=== PATIENT | male | born 1965 | race Caucasian/White ===

== ENCOUNTER 2020-02-15 05:14 | Outpatient (CLI) | payer BC, OTHER ==
[2020-02-15 09:55] LABS: #Eosinphils 0.4 thou/uL (0.0-0.7); #Lymphocytes 1.4 thou/uL (1.20-3.40); #Monocytes 1.3 thou/uL (0.11-0.59); #Neutrophils 12.8 thou/uL (1.40-6.50); %Basophils 0.1 % (0.0-1.0); %Eosinophils 2.3 % (0.0-10.0); %Lymphocytes 8.7 % (21.0-51.0); %Monocytes 8.4 % (0.0-10.0); %Neutrophils 80.5 % (42.0-75.0); Mean Corpuscular HGB CONC 32.7 g/dL (32.0-36.0); Mean Corpuscular Hemoglobin 28.8 pg (27.0-31.0); Mean Corpuscular Volume 88.2 fL (78.0-98.0); Mean Platelet Volume 6.7 fL (7.4-10.4); Platelet Count 508 thou/uL (130-400); Red Blood Cell (RBC) Count 4.15 mill/uL (4.70-6.10)
[2020-02-15 11:03] LABS: Anion Gap 19 mmol/L (10-20); BUN (Urea Nitrogen) 13 mg/dL (8.4-25.7); Calc. Creatinine Clearance 0 mL/min (70-130); Calcium 8.6 mg/dL (7.8-10.44); Carbon Dioxide 19 mmol/L (22-29); Chloride 106 mmol/L (98-107); Estimated GFR-MDRD Greater than 90; Glucose 89 mg/dL (70-105); Potassium 4.7 mmol/L (3.5-5.1); Sodium 139 mmol/L (136-145)
[2020-02-15 17:20] LABS: SARS-CoV-2 MS2 Positive; SARS-CoV-2 N Gene Negative; SARS-CoV-2 S Gene Negative; SARS-CoV-2 by NAA Not Detected (NotDetected); SARS-CoV-2 orf1ab Negative
== END 2020-02-15 05:15 | disposition home or self-care (01) ==
LOC: LABBT 05:14
PROVIDERS: ATTEND Specialist
DX: Z01.812 Encounter for preprocedural laboratory examination (principal); Z11.59 Encounter for screening for other viral diseases; R59.1 Generalized enlarged lymph nodes
CPT/HCPCS: 80048; 85025; 87635; U0003

== ENCOUNTER 2020-02-18 09:44 | Day surgery (SDC) | payer BC ==
[2020-02-13 10:45] VITALS: BMI 34.8
[~2020-02-18 09:44] MED LIST: Dexamethasone 20 MG/5 ML VIAL ONE; Lidocaine 1% PF 5 ML VIAL ONE; Ondansetron PF 4 MG/2 ML Vial ONE; PROPOFOL 200 MG/20 ML VIAL ONE
[2020-02-18] MEDS ORDERED: Lidocaine 1% w/Epinephrine 1:100K 20 ML VIAL ONE (10:23)
[2020-02-18] MEDS ORDERED: Bupivacaine PF 0.5% 30 ML VIAL ONE (10:23)
[2020-02-18] MEDS ORDERED: Fentanyl 100 MCG/2 ML VIAL ONE ×2 (11:28→11:36)
[2020-02-18] MEDS ORDERED: Midazolam HCl 2 mg/2 ml Vial ONE (11:28)
--- NOTE | 2020-02-18 18:56 | OP ---
DATE OF PROCEDURE: 02/18/2020 PREOPERATIVE DIAGNOSIS: Diffuse lymphadenopathy. POSTOPERATIVE DIAGNOSIS: Diffuse lymphadenopathy. PROCEDURE PERFORMED: Open lymph node biopsy, right groin. ANESTHESIA: General. ESTIMATED BLOOD LOSS: Minimal. COMPLICATIONS: None. SPECIMENS: Lymph node partial, sent to Path, lymph node protocol. DESCRIPTION OF PROCEDURE: The patient was taken to the operating room and laid supine on the operating room table. After general anesthetic was obtained, the right groin was shaved, prepped, and draped in a sterile fashion. An oblique incision was made above the palpable lymphadenopathy. Cautery was used to dissect down to the lymph node. The lymph node was quite large down near the blood vessels. The top of it was removed. The lymph node was sent to Path for final diagnosis. Meticulous hemostasis was obtained. Geoff and a bleeding starch were left on top of the exposed lymph node after the biopsy. The wound was closed using 3-0 Vicryl, 4-0 Monocryl, and Dermabond. The patient was sent to Recovery in stable condition. All instrument counts, needle counts, and lap counts were correct. Job ID: [id number]
== END 2020-02-18 13:46 | disposition home or self-care (01) ==
LOC: SDC 09:44
PROVIDERS: ATTEND Surgery
PROC: 07BH0ZX Excision of Right Inguinal Lymphatic, Open Approach, Diagnostic (ICD-10-PCS; principal; 2020-02-18)
DX: C83.35 Diffuse large B-cell lymphoma, lymph nodes of inguinal region and lower limb (principal); E11.9 Type 2 diabetes mellitus without complications; I10 Essential (primary) hypertension; E78.5 Hyperlipidemia, unspecified; G47.33 Obstructive sleep apnea (adult) (pediatric); N52.9 Male erectile dysfunction, unspecified; K21.9 Gastro-esophageal reflux disease without esophagitis; Z87.891 Personal history of nicotine dependence; Z88.5 Allergy status to narcotic agent; Z88.8 Allergy status to other drugs, medicaments and biological substances
CPT/HCPCS: 88184; 88307; J0690; J1100; J2250; J2405; J2704; J3010; S0020

== ENCOUNTER 2020-04-29 08:12 | Outpatient (CLI) | payer BC ==
--- NOTE | 2020-04-29 13:36 | PET ---
PET CT: HISTORY: 54-year-old male with diffuse large B-cell lymphoma, germinal center type, diagnosed on right groin l ymph node biopsy on 02/18/2020. Patient is undergoing chemotherapy. Exam requested to evaluate respon se and for subsequent treatment planning. TECHNIQUE: PET scanning with CT attenuation correction was performed from the base of the brain through the prox imal thighs following the intravenous administration of 12 mCi [id number] in the right hand. COMPARISON: 02/22/2020. FINDINGS: There is residual hypermetabolic activity in the right inguinal lymph node with a SUV of 3.8. Extensi ve katharina hypermetabolism noted on the previous exam in the neck, chest, axilla, abdomen, pelvis, and left inguinal regions have resolved in the interim and still have the multiple hypermetabolic pulmona ry nodules. No hypermetabolic pulmonary nodules, liver, or adrenal lesions are seen Increased uptake in the axill a and proximal peripheral skeleton is consistent with bone marrow stimulation. There is physiologic activity in the GI and tracts, and visualized portions of the brain. The CT scan used for attenuation correction demonstrates no evidence of pleural effusions or ascites. Cholelithiasis is again noted. IMPRESSION: Significant interval improvement since 02/22/2020 with an incomplete response to therapy (Deauville-3 ). POS: ISAURA
== END 2020-04-29 08:13 | disposition home or self-care (01) ==
LOC: PET 08:12
PROVIDERS: ATTEND Internal Medicine Hematology & Oncology
DX: C83.30 Diffuse large B-cell lymphoma, unspecified site (principal)
CPT/HCPCS: 78815; A9552

== ENCOUNTER 2020-07-01 09:23 | Outpatient (CLI) | payer BC ==
--- NOTE | 2020-07-01 11:33 | PET ---
EXAM: PET/CT HISTORY: History of diffuse large B-cell lymphoma TECHNIQUE: PET scanning with CT attenuation correction was performed from the base of the brain to the proximal thighs following the intravenous administration of 12.9 millicuries [id number]. COMPARISON: Prior PET/CT dated April 29, 2020 FINDINGS: Biodistribution:The biodistribution for the exam appears acceptable. Head and neck: There is appropriate background activity within the brain. No hypermetabolic lymphaden opathy or masses identified. The postsurgical change involving the left frontal skull with opacification of the frontal sinus is s table. Thorax: No hypermetabolic pulmonary lesion, pleural effusion or lymphadenopathy is present. Abdomen and pelvis: There is expected background activity within the GI and systems. No hypermetab olic mass, lymphadenopathy or ascites is present. The hypermetabolic lymphadenopathy of the right inguinal region demonstrates response to therapy. The largest lymph node within the right inguinal re gion measuring 1.8 cm now measures 1.4 cm with a peak activity of 1.94 where the previous peak activity was 3.84. There is cholelithiasis. Osseous structures and skin: There is hypermetabolic activity involving the marrow space of the visua lized axial and appendicular skeleton likely related to marrow stimulation. No suspicious osseous or skin lesion is identified. IMPRESSION: Findings consistent with complete response to therapy. The hypermetabolic lymphadenopathy of the righ t inguinal region has decreased in size and metabolic uptake. Peak activity within the most conspicuous right inguinal lymph node now is 1.94, below the level of the blood pool activity, and is consistent with Deauville score 2. There is some residual hypermetabolic activity seen within the marrow space of the visualized axial and appendicular skeleton likely related to background marrow st imulation. Continued clinical and PET CT follow-up is recommended.
== END 2020-07-01 09:24 | disposition home or self-care (01) ==
LOC: PET 09:23
PROVIDERS: ATTEND Internal Medicine Hematology & Oncology
DX: C83.30 Diffuse large B-cell lymphoma, unspecified site (principal)
CPT/HCPCS: 78815; A9552

== ENCOUNTER 2021-04-03 08:52 | Outpatient (CLI) | payer BC | END 2021-04-03 08:53 | disposition home or self-care (01) | LOC: BICCT 08:52 | PROVIDERS: ATTEND Internal Medicine Hematology & Oncology | DX: C83.83 Other non-follicular lymphoma, intra-abdominal lymph nodes (principal); C85.11 Unspecified B-cell lymphoma, lymph nodes of head, face, and neck; K80.20 Calculus of gallbladder without cholecystitis without obstruction | CPT/HCPCS: 71260; 74177 ==

== ENCOUNTER 2022-06-28 09:33 | Outpatient (CLI) | payer BC ==
[2022-06-28] MEDS ORDERED: Iopamidol-370 76% 500 ML 1 ML ONE (11:18)
== END 2022-06-28 09:34 | disposition home or self-care (01) ==
LOC: BICCT 09:33
PROVIDERS: ATTEND Internal Medicine Hematology & Oncology
DX: C83.83 Other non-follicular lymphoma, intra-abdominal lymph nodes (principal); C85.11 Unspecified B-cell lymphoma, lymph nodes of head, face, and neck; K80.20 Calculus of gallbladder without cholecystitis without obstruction
CPT/HCPCS: 71260; 74177

== ENCOUNTER 2024-05-15 12:29 | Inpatient (IN) | payer BC ==
[2024-05-15] MEDS ORDERED: Acetaminophen 325 MG TAB PO PRN (14:26)
[2024-05-15] MEDS ORDERED: Promethazine HCl 25 MG/ML VIAL IM PRN (14:26)
[2024-05-15] MEDS ORDERED: Ketorolac Tromethamine 30 MG (1 mL) VIAL IVP PRN (14:33)
[2024-05-15 15:07] VITALS: BMI 37.3
[2024-05-15] MEDS: Morphine 4 MG/ML VIAL SLOW IVP PRN ×2 (15:08→22:00)
[2024-05-15] MEDS: Piperacillin/Tazobactam 3.375 GM in Sodium Chloride 0.9% 100 ML IVPB SCH (15:11)
[2024-05-15] MEDS: Sodium Chloride 0.9% 1,000 ML IV SCH ×2 (15:11→15:28)
[2024-05-15 16:53] LABS: Lactic Acid 3.46 mmol/L (0.5-2.2)
[2024-05-15 16:58] LABS: Cardiac Risk 6.8 (Less than 4.5)
[2024-05-15] MEDS ORDERED: Piperacillin/Tazobactam 4.5 GM in Sodium Chloride 0.9% 100 ML IVPB SCH (18:00)
[2024-05-15] MEDS: Ondansetron PF 4 MG/2 ML Vial IVP PRN (18:07)
[2024-05-15] MEDS: fentaNYL 50 mcg/mL 1 mL Vial SLOW IVP PRN (18:07)
[2024-05-15] MEDS: Lactated Ringer's 1,000 ML IV SCH (21:58)
[2024-05-15] MEDS: Famotidine/PF 20 mg/2ml Vial SLOW IVP SCH (21:59)
[2024-05-15] MEDS: LevoFLOXacin 750 mg/D5W 750 MG in Premix 1 BAG IVPB SCH (21:59)
[2024-05-15] MEDS: Acetaminophen 500 MG TAB PO SCH (21:59)
[2024-05-15] MEDS: Enoxaparin 40 MG (0.4 mL) SYRINGE SC SCH (21:59)
[2024-05-15] MEDS: Ketorolac Tromethamine 30 MG (1 mL) VIAL IVP SCH (23:29)
[2024-05-16 06:22] LABS: #Basophils Less than 0.03 10x3/uL (0.0-0.2); #Eosinophils Less than 0.03 10x3/uL (0.0-0.7); %Basophils 0.1 % (0.0-1.0); %Lymphocytes 7.3 % (21.0-51.0); %Monocytes 6.1 % (0.0-10.0); %Neutrophils 86.2 % (42.0-75.0); Hematocrit 46.2 % (42.0-52.0); Hemoglobin 15.5 g/dL (14.0-18.0); Mean Corpuscular HGB CONC 33.5 g/dL (32.0-36.0); Mean Corpuscular Hemoglobin 31.3 pg (27.0-31.0); Mean Corpuscular Volume 93.3 fL (78.0-98.0); Mean Platelet Volume 9.1 fL (7.4-10.4); Platelet Count 292 10x3/uL (130-400); RBC Distribution Width 14.5 % (11.5-14.5); Red Blood Cell (RBC) Count 4.95 mill/uL (4.70-6.10)
[2024-05-16 06:41] LABS: ALT (SGPT) 58 U/L (8-55); AST (SGOT) 36 U/L (5-34); Albumin 3.6 g/dL (3.5-5.0); Alkaline Phosphatase 65 U/L (40-110); Anion Gap 14 mmol/L (10-20); BUN (Urea Nitrogen) 15 mg/dL (8.4-25.7); Bilirubin, Direct 0.2 mg/dL (0.1-0.3); Bilirubin, Total 0.8 mg/dL (0.2-1.2); Calc. Creatinine Clearance 148 mL/min (70-130); Calcium 8.2 mg/dL (7.8-10.44); Carbon Dioxide 27 mmol/L (22-29); Chloride 105 mmol/L (98-107); Estimated GFR 93; Globulin 3.3 g/dL (2.4-3.5); Glucose 202 mg/dL (70-105); Potassium 3.8 mmol/L (3.5-5.1); Protein, Total 6.9 g/dL (6.0-8.3); Sodium 142 mmol/L (136-145)
[2024-05-16 07:58] LABS: CRP,High Sensitivity (Inhouse) 18.49 mg/dL (< or = 0.5)
[2024-05-16 08:19] LABS: Lipase 907 U/L (8-78)
[2024-05-16] MEDS ORDERED: PROPOFOL 20 ML ONE (08:58)
[2024-05-16] MEDS ORDERED: Lidocaine 1% PF 5 ML VIAL ONE (08:58)
[2024-05-16] MEDS ORDERED: fentaNYL PF 100 MCG/2 ML SYRINGE ONE (08:58)
[2024-05-16] MEDS ORDERED: Midazolam HCl 2 mg/2 ml Vial ONE (08:59)
[2024-05-16] MEDS ORDERED: Glucagon 1 MG/ML KIT ONE (09:17)
[2024-05-16] MEDS ORDERED: EPINEPHrine 1 MG/ML VIAL ONE (09:17)
[2024-05-16] MEDS ORDERED: Bupivacaine 0.25% HCL 30 ML VIAL ONE (09:17)
[2024-05-16] MEDS ORDERED: Iopamidol 30 ML ONE ×2 (09:17→12:18)
[2024-05-16] MEDS ORDERED: HYDROmorphone 2 MG/ML VIAL ONE (09:36)
[2024-05-16] MEDS: Lactated Ringer's 1,000 ML IV SCH (10:43)
[2024-05-16] MEDS ORDERED: Rocuronium Bromide 10 MG/ML (10ML VIAL) ONE (10:56)
[2024-05-16] MEDS ORDERED: Dexamethasone 20 MG/5 ML VIAL ONE (10:56)
[2024-05-16] MEDS ORDERED: SUGAMMADEX SODIUM 200 MG/2 ML VIAL ONE (12:27)
[2024-05-16] MEDS ORDERED: Ondansetron PF 4 MG/2 ML Vial ONE (12:27)
[2024-05-16] MEDS ORDERED: SUCCINYLCHOLINE/SOD CL,ISO/PF 200 MG/10 ML SYRINGE FS ONE (12:56)
[2024-05-16] MEDS ORDERED: Labetalol HCl 100 MG/20 ML VIAL ONE (13:05)
[2024-05-16] MEDS: traMADol HCl 50 MG TAB PO PRN (21:29)
[2024-05-17 06:37] LABS: #Basophils 0.03 10x3/uL (0.0-0.2); #Eosinophils Less than 0.03 10x3/uL (0.0-0.7); %Basophils 0.2 % (0.0-1.0); %Lymphocytes 9.5 % (21.0-51.0); %Neutrophils 82.6 % (42.0-75.0); Hematocrit 41.4 % (42.0-52.0); Hemoglobin 13.9 g/dL (14.0-18.0); Mean Corpuscular HGB CONC 33.6 g/dL (32.0-36.0); Mean Corpuscular Hemoglobin 31.2 pg (27.0-31.0); Mean Corpuscular Volume 92.8 fL (78.0-98.0); Platelet Count 214 10x3/uL (130-400); RBC Distribution Width 14.3 % (11.5-14.5); Red Blood Cell (RBC) Count 4.46 mill/uL (4.70-6.10)
[2024-05-17 06:58] LABS: ALT (SGPT) 85 U/L (8-55); AST (SGOT) 74 U/L (5-34); Albumin 2.9 g/dL (3.5-5.0); Alkaline Phosphatase 64 U/L (40-110); Anion Gap 13 mmol/L (10-20); BUN (Urea Nitrogen) 14 mg/dL (8.4-25.7); Bilirubin, Total 1.1 mg/dL (0.2-1.2); Calc. Creatinine Clearance 177 mL/min (70-130); Calcium 7.5 mg/dL (7.8-10.44); Carbon Dioxide 23 mmol/L (22-29); Chloride 103 mmol/L (98-107); Estimated GFR 104; Globulin 2.9 g/dL (2.4-3.5); Glucose 183 mg/dL (70-105); Lipase 166 U/L (8-78); Potassium 3.9 mmol/L (3.5-5.1); Protein, Total 5.8 g/dL (6.0-8.3); Sodium 135 mmol/L (136-145)
[2024-05-17 07:57] VITALS: TEMP 97.7
[2024-05-17] MEDS: Aspirin 81 mg Enteric Coated Tablet PO SCH (08:18)
[2024-05-17] MEDS ORDERED: Ibuprofen 600 MG TAB PO PRN (09:57)
[2024-05-17 11:40] VITALS: BP 149/86
== END 2024-05-17 14:19 | disposition home or self-care (01) | DRG 417 ==
LOC: T4-B 13:33
PROVIDERS: ADMIT Family Medicine; ATTEND Internal Medicine
PROC: 0FT44ZZ Resection of Gallbladder, Percutaneous Endoscopic Approach (ICD-10-PCS; principal; 2024-05-16)
PROC: 0DNU4ZZ Release Omentum, Percutaneous Endoscopic Approach (ICD-10-PCS; 2024-05-16)
PROC: BF141ZZ Fluoroscopy of Gallbladder, Bile Ducts and Pancreatic Ducts using Low Osmolar Contrast (ICD-10-PCS; 2024-05-16)
DX: K81.0 Acute cholecystitis (principal); K85.10 Biliary acute pancreatitis without necrosis or infection; C83.30 Diffuse large B-cell lymphoma, unspecified site; I25.10 Atherosclerotic heart disease of native coronary artery without angina pectoris; E66.9 Obesity, unspecified; G47.30 Sleep apnea, unspecified; K66.0 Peritoneal adhesions (postprocedural) (postinfection); I10 Essential (primary) hypertension; E78.5 Hyperlipidemia, unspecified; Z95.5 Presence of coronary angioplasty implant and graft; Z88.8 Allergy status to other drugs, medicaments and biological substances; Z68.37 Body mass index [BMI] 37.0-37.9, adult
CPT/HCPCS: 36415; 47532; 74177; 80053; 80061; 80076; 81001; 83605; 83690; 85025; 86141; 88304; 93005; 93010; 96361; 96365; 96375; 96376; C1889; J0171; J0665; J1100; J1611; J1650; J1885; J1956; J2250; J2272; J2405; J2543; J2704; J3010; J3490; J7030; J7120; Q9967